=== PATIENT | female | born 1985 | race Caucasian/White ===

== ENCOUNTER 2017-08-16 09:28 | Emergency (ER) | payer MEDICAID ==
[2017-08-16 09:42] VITALS: BP 130/68
--- NOTE | 2017-08-16 11:48 | UC ---
Complaint Female HPI - HPI Summary HPI Summary: Patient presents with complaints of bilateral flank pain, increased urinary urgency, frequency, and reports that her urine is more cloudy, and foul smelling. She states she just finished her period, and denies any abnormal vaginal discharge or bleeding. She denies fever, but states last night she had chills. She denies any injury or trauma to explain her back pain. Denies any incontinence of bowel, bladder or saddle anesthesia. - History Of Current Complaint Chief Complaint: UCBackPain Stated Complaint: LOWER BACK PAIN Time Seen by Provider: 08/16/17 11:04 Hx Obtained From: Patient Hx Last Menstrual Period: 08/09/17 ?: No Onset/Duration: Gradual Onset, Lasting Days Timing: Intermittent Severity Initially: Moderate Severity Currently: Moderate Character: Dull Aggravating Factor(s): Urination Alleviating Factor(s): Position Associated Signs And Symptoms: Positive: Back Pain - Risk Factors Ectopic Risk Factor: Negative - Allergies/Home Medications Allergies/Adverse Reactions: Allergies Allergy/AdvReac Type Severity Reaction Status Date / Time No Known Allergies Allergy Verified 08/16/17 09:33 PMH/Surg Hx/FS Hx/Imm Hx Previously Healthy: Yes - Surgical History Surgical History: None - Family History Known Family History: Positive: Hypertension, Diabetes Negative: Cardiac Disease - Social History Occupation: Employed Full-time Lives: Alone Alcohol Use: Occasionally Substance Use Type: None Smoking Status (MU): Never Smoked Tobacco Review of Systems Constitutional: Negative, Chills Skin: Negative Eyes: Negative ENT: Negative Respiratory: Negative Cardiovascular: Negative Gastrointestinal: Negative Genitourinary: Dysuria, Frequency, Urgency Motor: Negative Neurovascular: Negative Musculoskeletal: Negative Neurological: Negative Psychological: Negative All Other Systems Reviewed And Are Negative: Yes Physical Exam Triage Information Reviewed: Yes Appearance: Well-Appearing Vital Signs: Initial Vital Signs Temp 97.9 F 08/16/17 09:34 Pulse 77 08/16/17 09:34 Resp 16 08/16/17 09:34 BP 130/68 08/16/17 09:34 Pulse Ox 100 08/16/17 09:34 Vital Signs Reviewed: Yes Eye Exam: Normal ENT Exam: Normal Dental Exam: Normal Neck exam: Normal Neck: Positive: 1 Respiratory Exam: Normal Cardiovascular Exam: Normal Abdominal Exam: Normal Musculoskeletal Exam: Normal Neurological Exam: Normal Psychological Exam: Normal Skin Exam: Normal Complaint Female Dx - Course Course Of Treatment: Patient presents with complaints of flank pain, and dysuria. UA and clinical findings were consistent with UTI/and early pyelonephriis. Patient had normal VS, and a nontoxic appearance. Treated with Cipro 500 mg by mouth twice daily x 10 days. I also told the patient that if her symtpoms worsened i.e. fever, chills, worse flank pain to go directly to the emergency department. She verbalized understanding, and was in agreement with the discharge plan. - Differential Dx/Diagnosis Differential Diagnosis/HQI/PQRI: Urinary Tract Infection Provider Diagnoses: uti. pyelonephritis Discharge - Discharge Plan Condition: Stable Disposition: HOME Prescriptions: Ciprofloxacin TAB* [Cipro 500 MG TAB*] 500 mg PO BID #20 tab Patient Education Materials: Urinary Tract Infection in Women (ED), Flank Pain (ED) Forms: *Work Release Referrals: [facility] [Outside] No Primary Care Phys,NOPCP [Primary Care Provider] - Additional Instructions: If your symptoms get worse; fever, chills, worsening flank pain go to the ER at once.
== END 2017-08-16 11:50 | disposition home or self-care (01) ==
LOC: UCEAST 09:28
DX: N39.0 Urinary tract infection, site not specified (principal); B96.20 Unspecified Escherichia coli [E. coli] as the cause of diseases classified elsewhere; N10 Acute pyelonephritis; Z32.02 Encounter for pregnancy test, result negative
CPT/HCPCS: 81003; 84702; 87077; 87086; 87186; 99212; G0463

== ENCOUNTER 2017-09-28 10:07 | Emergency (ER) | payer SELFPAY ==
[2017-09-28 10:39] VITALS: BP 149/68
--- NOTE | 2017-09-28 10:51 | UC ---
Respiratory Complaint HPI - HPI Summary HPI Summary: Pt presents with cough. She tells me that for the last 5 days she has had a cough and felt like her chest is congested. She has also felt feverish with chills and a mild earache. Denies SOB, chest pain, abdominal pain, n/v/d/c. - History of Current Complaint Chief Complaint: UCRespiratory Stated Complaint: CHEST CONGESTION Time Seen by Provider: 09/28/17 10:46 Hx Obtained From: Patient Hx Last Menstrual Period: 09/21 Onset/Duration: Gradual Onset Severity Initially: Mild Severity Currently: Moderate Pain Intensity: 4 Pain Scale Used: 0-10 Numeric - Allergies/Home Medications Allergies/Adverse Reactions: Allergies Allergy/AdvReac Type Severity Reaction Status Date / Time No Known Allergies Allergy Verified 08/16/17 09:33 Home Medications: Home Medications Lupntkjzyhimejay-Csgcnmtnay-IK [Vicks Nyquil Cold & Flu] 1 cap PO 09/28/17 [ History] Dextromethorphan-Phenylephrine [Daytime Cold & Flu Relief 10-5-325 mg] 1 cap PO 09/28/17 [History] PMH/Surg Hx/FS Hx/Imm Hx Previously Healthy: Yes - Surgical History Surgical History: None - Family History Known Family History: Positive: Hypertension, Diabetes Negative: Cardiac Disease - Social History Alcohol Use: Occasionally Substance Use Type: None Smoking Status (MU): Never Smoked Tobacco Review of Systems Constitutional: Fever, Chills Skin: Negative Eyes: Negative ENT: Sore Throat, Ear Ache Respiratory: Cough Cardiovascular: Negative Gastrointestinal: Negative Genitourinary: Negative All Other Systems Reviewed And Are Negative: Yes Physical Exam Triage Information Reviewed: Yes Appearance: Well-Appearing, Well-Nourished Vital Signs: Initial Vital Signs Temp 98.6 F 09/28/17 10:36 Pulse 68 09/28/17 10:36 Resp 18 09/28/17 10:36 BP 149/68 09/28/17 10:36 Pulse Ox 100 09/28/17 10:36 Vital Signs Reviewed: Yes Eyes: Positive: Conjunctiva Clear. Negative: Discharge ENT: Positive: Hearing grossly normal, Pharynx normal, TM bulging - Left ear, TM dull - Left ear, TM red - Left ear, Uvula midline. Negative: Pharyngeal erythema, Nasal congestion, Nasal drainage, Tonsillar swelling, Tonsillar exudate, Sinus tenderness Neck: Positive: Supple, Nontender, No Lymphadenopathy Respiratory: Positive: Chest non-tender, Lungs clear, No respiratory distress, No accessory muscle use, Wheezing - Throughout Cardiovascular: Positive: RRR, No Murmur, Pulses Normal UC Diagnostic Evaluation - Laboratory O2 Sat by Pulse Oximetry: 100 Respiratory Course/Dx - Course Course Of Treatment: Bronchitis. Pharyngitis. Otitis media Left ear. Amoxicillin and albuterol inhaler - Differential Dx/Diagnosis Differential Diagnosis/HQI/PQRI: Asthma, Bronchitis, Lower Resp Infection, Sinusitis Provider Diagnoses: Otitis media. Bronchitis. Pharyngitis Discharge - Discharge Plan Condition: Stable Disposition: HOME Prescriptions: Albuterol HFA INHALER* [Ventolin HFA Inhaler*] 1 - 2 puff INH Q4H PRN #1 mdi PRN Reason: Sob/Wheezing Amoxicillin PO (*) [Amoxicillin 500 MG CAP*] 500 mg PO Q12H #20 cap Patient Education Materials: Otitis Media (ED), Acute Bronchitis (ED) Referrals: No Primary Care Phys,NOPCP [Primary Care Provider] - Additional Instructions: 1) Mucinex OTC twice a day If you develop a fever, SOB, chest pain, new or worsening symptoms - please call your PCP or go to the ED. Your blood pressure was high at todays visit. Please see your primary provider within 4 weeks for recheck and re-evaluation.
== END 2017-09-28 11:14 | disposition home or self-care (01) ==
LOC: UCEAST 10:07
DX: J40 Bronchitis, not specified as acute or chronic (principal); H66.90 Otitis media, unspecified, unspecified ear; J02.9 Acute pharyngitis, unspecified
CPT/HCPCS: 99212; G0463

== ENCOUNTER 2017-11-10 21:14 | Emergency (ER) | payer SELFPAY ==
[2017-11-10 21:27] VITALS: BP 151/76
--- NOTE | 2017-11-10 22:16 | UC ---
Respiratory Complaint HPI - HPI Summary HPI Summary: c/o cough and URI symptoms for the past month and for the past 5 days has noticed some spots on her tonsils. Denies fever, malaise or LNE - History of Current Complaint Chief Complaint: UCRespiratory Stated Complaint: SORE THROAT Time Seen by Provider: 11/10/17 21:51 Hx Last Menstrual Period: 11/01/17 Onset/Duration: Gradual Onset Timing: Intermittent Episodes Severity Initially: Mild Severity Currently: Mild Character: Cough: Nonproductive Associated Signs And Symptoms: Positive: URI - Allergies/Home Medications Allergies/Adverse Reactions: Allergies Allergy/AdvReac Type Severity Reaction Status Date / Time No Known Allergies Allergy Verified 11/10/17 21:27 PMH/Surg Hx/FS Hx/Imm Hx Previously Healthy: Yes - Surgical History Surgical History: None - Family History Known Family History: Positive: Hypertension, Diabetes Negative: Cardiac Disease - Social History Alcohol Use: Occasionally Substance Use Type: None Smoking Status (MU): Never Smoked Tobacco - Immunization History Most Recent Influenza Vaccination: never Review of Systems Constitutional: Negative ENT: Sore Throat, Sinus Congestion Respiratory: Cough Is Patient Immunocompromised?: No All Other Systems Reviewed And Are Negative: Yes Physical Exam Triage Information Reviewed: Yes Appearance: Well-Appearing Vital Signs: Initial Vital Signs Temp 97.8 F 11/10/17 21:22 Pulse 69 11/10/17 21:22 Resp 16 11/10/17 21:22 BP 151/76 11/10/17 21:22 Pulse Ox 100 11/10/17 21:22 Vital Signs Reviewed: Yes Eyes: Positive: Conjunctiva Clear ENT: Positive: TMs normal, Tonsillar exudate Neck: Positive: Supple, Nontender, No Lymphadenopathy Respiratory Exam: Normal Cardiovascular Exam: Normal UC Diagnostic Evaluation - Laboratory O2 Sat by Pulse Oximetry: 100 Respiratory Course/Dx - Course Course Of Treatment: throat culture sent, will await results and treat accordingly. Fluids, rest - Differential Dx/Diagnosis Provider Diagnoses: URI. Tonsillitis Discharge - Discharge Plan Condition: Stable Disposition: HOME Referrals: No Primary Care Phys,NOPCP [Primary Care Provider] - [facility] [Provider Group]
== END 2017-11-10 22:20 | disposition home or self-care (01) ==
LOC: UCEAST 21:14
DX: J03.90 Acute tonsillitis, unspecified (principal)
CPT/HCPCS: 87070; 87077; 87651; 99211; G0463

== ENCOUNTER 2018-09-19 01:02 | Inpatient (IN) | payer OTHER ==
[2018-09-19] MEDS ORDERED: Penicillin G Potassium IV* 5,000,000 UNITS in NS 0.9% 100 ML* 100 ML IVPB ONE (02:00)
[2018-09-19 02:13] LABS: ABS Basophils 0 10^3/ul (0-0.2); ABS Eosinophils 0.1 10^3/ul (0-0.6); ABS Lymphocytes 2.9 10^3/ul (1.0-4.8); ABS Monocytes 1.3 10^3/ul (0-0.8); ABS Neutrophils 9.5 10^3/ul (1.5-7.7); ABS Nucleated RBC 0 10^3/ul; Eosinophil % 0.7 % (0-6); Hematocrit 34 % (35-47); Hemoglobin 11.5 g/dl (12.0-16.0); Lymphocyte % 21.3 % (25-47); Mean Corpuscular HGB Conc 34 g/dl (31-36); Mean Corpuscular Hemoglobin 31 pg (27-31); Mean Corpuscular Volume 91 fL (80-97); Mean Platelet Volume 8.3 fL (7.4-10.4); Nucleated Red Blood Cells % 0; Platelet Count 276 10^3/ul (150-450); Red Blood Count 3.74 10^6/ul (4.00-5.40); Red Cell Distribution Width 14 % (10.5-15); White Blood Count 13.8 10^3/ul (3.5-10.8)
--- NOTE | 2018-09-19 02:34 | HP ---
General Information - Reason for Visit SROM at 2130 to clear fluid - General Information Maternal Age: 32 Grav: 2 Para: 1 SAB: 0 IEA: 0 Estimated Due Date: 10/07/18 Determined By: LMP Gestational Age in Weeks/Days: 37 01/09 Maternal Blood Type and Rh: O Positive - Results this Serology/RPR Result: Non-Reactive Rubella Result: Immune HBsAg Result: Negative HIV Result: Negative GBS Culture Result: Positive Past Medical History Delivery History: Hx Uncomplicated Vaginal Delivery - episiotomy Pertinent Past Medical History: See Records - hx MRSA Pertinent Past Surgical History: None Pertinent Family History: See Records - DM, HTN - Antepartal Records Antepartal Records: Reviewed, Uncomplicated - Varicella nonimmune Review of Systems Constitutional: Comfortable CV Complaint: No Respiratory: Shortness of Breath: No Gastrointestinal: No Nausea/Vomiting, Normal Bowel Movement Genitourinary: Leaking Fluid, No Dysuria, No Bleeding Musculoskeletal: No Complaint, No Epigastric Pain Neurological: No Headache, No Visual Changes Movement: Normal Exam Allergies/Adverse Reactions: Allergies No Known Allergies Allergy (Verified 02/05/18 12:32) T-97.5, P-88, R=-20, BP- 139/83, )2-100% Lab Values - Entire Visit: Laboratory Tests 09/19/18 09/19/18 01:50 01:50 WBC 13.8 H RBC 3.74 L Hgb 11.5 L Hct 34 L MCV 91 MCH 31 MCHC 34 RDW 14 Plt Count 276 MPV 8.3 Neut % (Auto) 68.5 Lymph % (Auto) 21.3 L Moody % (Auto) 9.2 H Eos % (Auto) 0.7 Baso % (Auto) 0.3 Absolute Neuts (auto) 9.5 H Absolute Lymphs (auto) 2.9 Absolute Monos (auto) 1.3 H Absolute Eos (auto) 0.1 Absolute Basos (auto) 0 Absolute Nucleated RBC 0 Nucleated RBC % 0 Blood Type O Positive - Measurements Height: 5 ft 7 in Weight: 112.037 kg Body Mass Index (BMI): 38.7 Pre- Weight: 102.058 kg - Exam Breast: Breast Exam Deferred CVA: No CVA Tenderness Extremities: No Edema Heart: Normal Rhythm/Heart Sounds HEENT: No Significant Findings Lungs: Clear Bilaterally Rectal: Rectal Exam Deferred Reflexes: DTR 2+ Thyroid: No Thyromegaly - Abdominal Exam Abdomen Exam: Non-Tender, Fundal Height Consistent with Dates - Ultrasound/Biophysical Profile Ultrasound Status: Not Done Targeted Exam Findings See L&D Outpatient Visit Provider Note for Findings: N/A Estimated Weight: 7.5# Cervical Exam: 1cm - 1-2 cm Effacement: 60% Station: -2 Presenting Part: Vertex Membrane Status: SROM Amniotic Fluid Evaluation: Gross Rupture Bleeding/Discharge: None EFM Findings - External Monitor Findings Baseline Heart Rate: 140 External Monitor Findings: Accelerations Present, No Pattern of Variable or Late Decelerations, Variability Moderate, Baseline Stable Contractions: Irregular, Mild, 45-90 Seconds Contraction Frequency: approx every 10 minutes Assessment/Plan - Assessment 32 year old at 37 3/7 weeks gestation with PROM, beginning to contract. No evidence of acidemia. - Obstetrical Risk Factors Obstetrical Risk Factors: GBS Positive - Plan Plan: Antibiotic Prophylaxis, Admit - Anticipate Vaginal Delivery Plan Comment: Discussed options with pt including initiating Pitocin augmentation at this time , vs waiting to see if labor starts spontaneously. Pt prefers to wait at least a few hours. Recommended augmentation in the morning if no active labor yet at that time. GBS prophylaxis initiated. IVF bolus given. - Date/Time of Admission Date of Admission: 09/19/18 Time of Admission: 01:44
[2018-09-19] MEDS ORDERED: Penicillin G Potassium IV* 2,500,000 UNITS in NS 0.9% 100 ML* 100 ML IVPB SCH (06:00)
[2018-09-19] MEDS ORDERED: OBEPIDURAL* 250 ML EPIDURAL ONE (07:16)
[2018-09-19] MEDS ORDERED: Phenylephrine IV* 40 MCG/ML 10 ML SYRINGE IV PUSH PRN ×2 (07:45)
[2018-09-19] MEDS ORDERED: Sodium Citrate/Citric Acid* 15 ML UDC PO PRN (07:45)
[2018-09-19] MEDS ORDERED: OBEPIDURAL* 250 ML EPIDURAL SCH (08:00)
[2018-09-19] MEDS ORDERED: Oxytocin in LR* 20 UNITS/1,000 ML BAG IVPB ONE (09:12)
[2018-09-19] MEDS ORDERED: Glycerin ADULT SUPP PR PRN (09:52)
[2018-09-19] MEDS ORDERED: Witch Hazel PAD* JAR TOPICAL PRN (09:52)
[2018-09-19] MEDS ORDERED: Acetaminophen TAB* 325 MG PO PRN (09:52)
[2018-09-19] MEDS ORDERED: Dibucaine 1% 28.35 GM TUBE PR PRN (09:52)
[2018-09-19] MEDS ORDERED: Oxytocin in LR* 20 UNITS/1,000 ML BAG IVPB SCH (10:00)
--- NOTE | 2018-09-19 10:01 | PROCNOTE ---
[facility] OB: Delivery Note - Delivery A Date of : 09/19/18 Time of : 09:33 [place] Sex: Male Score 1 Minute: 7 Score 5 Minutes: 9 Gestational Age in Weeks and Days at Delivery: 37 Weeks and 3 Days Delivery Method: Spontaneous Vaginal Labor: Spontaneous Amniotic Fluid: Clear Estimated Blood Loss: 100 Anesthesia/Analgesia: CEI for Labor Anesthesia Comment: Dr. Sumner Delivered By: Raquel Arroyo - Nursery Level of Nursery: Regular/Bedside - Perineum Perineal Injury Comment: Abrasion--2 stitch repair w/ 4-0 rapide, no local Perineal Repair: By Delivering Practioner - Events Delivery Events of Note: Pitocin During Labor, Full Course of Antibiotics - Additional Delivery Notes Additional Delivery Notes: SVB [facility], DEUCE, over perineal abrasion. pink with stimulation. Placenta Marco A. FF, scant bleeding. IV with pitocin running. EBL 100. Mother and baby in good condition
[2018-09-19] MEDS: Ibuprofen TAB* 600 MG PO PRN ×2 (13:44→20:47)
[2018-09-19] MEDS: Docusate CAP* 100 MG PO SCH ×2 (14:10→20:47)
[2018-09-19] MEDS ORDERED: Phenylephrine IV* 40 MCG/ML 10 ML SYRINGE ONE (20:10)
[2018-09-20] MEDS: Ibuprofen TAB* 600 MG PO PRN ×2 (05:53→20:05)
[2018-09-20 08:16] LABS: Hematocrit 32 % (35-47); Hemoglobin 10.8 g/dl (12.0-16.0); Mean Corpuscular HGB Conc 34 g/dl (31-36); Mean Corpuscular Hemoglobin 31 pg (27-31); Mean Corpuscular Volume 91 fL (80-97); Mean Platelet Volume 8.2 fL (7.4-10.4); Platelet Count 216 10^3/ul (150-450); Red Blood Count 3.51 10^6/ul (4.00-5.40); Red Cell Distribution Width 14 % (10.5-15); White Blood Count 10.9 10^3/ul (3.5-10.8)
[2018-09-20] MEDS ORDERED: Ferrous Gluconate TAB* 324 MG TAB PO SCH (09:00)
[2018-09-20] MEDS ORDERED: Varicella Virus Vaccine Live* 0.5 ML VIAL SUBCUT ONE (09:00)
[2018-09-20] MEDS: Docusate CAP* 100 MG PO SCH ×3 (10:37→20:47)
[2018-09-21 08:29] VITALS: BP 132/68
[2018-09-21] MEDS ORDERED: Tetan/Diph/Pertus SYR(Tdap)* 0.5 ML SYR(BOOSTRIX) use SYR IM ONE (11:55)
== END 2018-09-21 12:45 | disposition home or self-care (01) | DRG 560 ==
LOC: MCHOBOUT 01:02 → MCHOB 01:44
PROVIDERS: ADMIT Midwife; ATTEND Midwife
PROC: 10E0XZZ Delivery of Products of Conception, External Approach (ICD-10-PCS; principal; 2018-09-19)
PROC: 4A1HXCZ Monitoring of Products of Conception, Cardiac Rate, External Approach (ICD-10-PCS; 2018-09-19)
PROC: 0HQ9XZZ Repair Perineum Skin, External Approach (ICD-10-PCS; 2018-09-19)
DX: O42.02 Full-term premature rupture of membranes, onset of labor within 24 hours of rupture (principal); Z37.0 Single live birth; O99.824 Streptococcus B carrier state complicating childbirth; O71.82 Other specified trauma to perineum and vulva; Z3A.37 37 weeks gestation of pregnancy; Z86.14 Personal history of Methicillin resistant Staphylococcus aureus infection; O90.81 Anemia of the puerperium
CPT/HCPCS: 36415; 85025; 85027; 86850; 86900; 86901; 87641; A9270-GY; J2540